=== PATIENT | female | born 1960 ===

== ENCOUNTER → 2023-09-01 18:46 | Outpatient (REF) | payer BC, SELFPAY | LOC: WDC 18:46 | PROVIDERS: ATTENDING PHYSICIAN Family Medicine | DX: Z12.31 Encounter for screening mammogram for malignant neoplasm of breast (principal) | CPT/HCPCS: 77063; 77067 ==

== ENCOUNTER 2023-09-26 21:37 | Emergency (ER) | payer BC, SELFPAY ==
[2023-09-26 21:42] VITALS: BP 194/96
[2023-09-26 22:09] LABS: % Basophils 0.4 % (0-2); % Eosinophils 0.7 % (0-6); % Immature Granulocytes 0.3 % (0-0.5); % Lymphocytes 16.1 % (20.5-51.1); % Neutrophils 77.5 % (42.2-75.2); Absolute Eosinophils 0.1 10^3/uL (0-0.7); Absolute Lymphocytes 1.7 10^3/uL (1.2-3.4); Absolute Monocytes 0.5 10^3/uL (0.1-0.6); Hematocrit 42.7 % (37.0-47.0); Hemoglobin 13.9 g/dL (12.0-16.0); Mean Corp Hgb Conc. 32.6 g/dL (33.0-37.0); Mean Corpuscular Hgb 29.4 pg (27.0-31.0); Mean Corpuscular Volume 90.5 fL (81.0-99.0); Mean Platelet Volume 9.9 fL (7.4-10.4); Nucleated Red Blood Cells % 0 %; Platelet Count 244 10^3/uL (130-400); Red Blood Cell Count 4.72 10^6/uL (4.20-5.40); Red Cell Dist. Width 12.9 % (11.5-14.5); White Blood Cell Count 10.3 10^3/uL (4.8-10.8)
[2023-09-26 22:12] LABS: Urine Albumin Negative (Neg - Trace); Urine Bilirubin Negative (Negative); Urine Character Clear (Clear); Urine Color Yellow; Urine Glucose Negative (Negative); Urine Ketone Trace (Negative); Urine Leukocyte 2+ (Negative); Urine Nitrite Negative (Negative); Urine Occult Blood Negative (Negative); Urine Specific Gravity 1.015 (<1.030); Urine Urobilinogen Negative (Neg - 1+)
[2023-09-26 22:22] LABS: ALT (SGPT) 29 U/L (0-35); AST (SGOT) 25 U/L (14-36); Alkaline Phosphatase 59 U/L (38-126); Blood Urea Nitrogen 12 mg/dl (7-17); Carbon Dioxide 28 mmol/L (22-30); Chloride 101 mmol/L (98-107); Glucose 122 mg/dl (70-99); Potassium 3.7 mmol/L (3.5-5.1); Sodium 136 mmol/L (135-145); Total Bilirubin 0.4 mg/dl (0.2-1.3); Total Protein 7.6 g/dl (6.3-8.2); eGFR > 60.00
[2023-09-26 22:28] LABS: Urine Bacteria Few (Negative); Urine Red Blood Cell 0-2 /HPF (0-2)
--- NOTE | 2023-09-26 22:44 | ED.GENMED ---
History of Present Illness
General
Chief Complaint: Abdominal Pain
Source: patient
Exam Limitations: none
Time Seen by Provider: 09/26/23 22:37
Travel History
Have you had any contact with someone who has COVID-19?: No
Do you have any symptoms of coronavirus? Fever > 100 degrees, chills, cough, shortness of breath, sore throat, loss of taste or smell, muscle aches, or headache?: No
History of Present Illness
History of Present Illness:
This is a 63 year old female that comes in with c/o left lower abd pain. Stat that she has had this Throbbing pain in the left lower abd all day. States that she felt like she could hardly walk. States that when she had her kidney stone she had pain
in the back and into the groin but this is different. States that she was nauseated. Denies any fever, chills, chest pain, SOB, vomiting, diarrhea, headache, dizziness, urinary burning.
Past History
Past History
ED Past Medical History: Other (PNA, renal calculus)
ED Past Surgical History: Cholecystectomy, Tonsilectomy and Other (Left Lumpectomy)
Social History
Tobacco: Non-smoker
Alcohol: None
Personal:
Living: alone
Review of Systems
Review of Systems
All Other Systems: ROS reviewed and negative except as documented in HPI and ROS
Constitutional: Reports no symptoms; Denies fever or chills
EENT: Reports no symptoms
Respiratory: Reports no symptoms; Denies cough or trouble breathing
Cardiac: Reports no symptoms; Denies chest pain
ABD/GI: Reports abdominal pain and nausea; Denies vomiting or diarrhea
Musculoskeletal: Reports no symptoms
Skin: Reports no symptoms
Neurological: Denies no symptoms, dizzy or headache
Psychiatric: Reports no symptoms
Phy Exam
General Physical Exam
General Presentation: no apparent distress
General age: appears stated age
General Skin: warm and dry
General Habitus: normal
General Mental: alert
General Hydration: appears well hydrated
ENT Exam
ENT Exam: TM's normal, pharynx normal and neck supple
Eye Exam
Eye Exam: EOMI
Cardiovascular Exam
Cardiovascular Exam: regular rate/rhythm, no edema, no murmur and normal peripheral pulses
Pulmonary Exam
Pulmonary Exam: lungs clear, no respiratory distress, no rales, chest non tender, no crackles, no rhonchi, no wheezing and no cough
Gastrointestinal Exam
Gastrointestinal Exam: normal bowel sounds, soft, no organomegaly, no pulsatile mass, non distended and tender (LLQ tenderness with palpation)
Musculoskeletal Exam
Musculoskeletal Exam: full ROM and no edema
Skin Exam
Skin Exam: normal color, warm/dry, no rash and no petechia
Psychiatric Exam
Psychiatric Exam: normal mood/affect
Course
Orders/Labs/Results
Orders:
Orders
09/26/23 21:59
CMP [Comprehensive Metabolic Panel] Urgent
Complete Blood Count/With Diff Urgent
Urinalysis Urgent
Date Specimen was Collected: 09/26/23
Time Specimen was Collected: 21:44
Urine Microscopic Urgent
Date Specimen was Collected: 09/26/23
Time Specimen was Collected: 21:44
09/26/23 22:44
CT Abd/pelvis W Iv Cont Urgent
Comment:
Reason For Exam: left sided abd pain
0.9% Sodium Chloride 1000 ml [Nss] 1,000 ml IV BOLUS
Abnormal Lab Results
09/26/23
21:59
MCHC 32.6 L g/dL
(33.0-37.0)
Absolute Neuts (auto) 8.0 H 10^3/uL
(1.4-6.5)
Neutrophils % 77.5 H %
(42.2-75.2)
Lymphocytes % 16.1 L %
(20.5-51.1)
Glucose 122 H mg/dl
(70-99)
Urine Ketones Trace A
(Negative)
Ur Leukocyte Esterase 2+ A
(Negative)
Urine WBC 6-10 A /HPF
(0-5)
Urine Bacteria Few A
(Negative)
09/26/23 21:59
09/26/23 21:59
Glucose nonfasting. Urine questionable for infection (patient has no c/o burning or frequency, would wait to treat).
Vital Signs
Initial and Last Documented VS:
Initial Vital Signs
Temp Pulse Resp BP Pulse Ox
98.1 F 78 24 194/96 100
09/26/23 21:42 09/26/23 21:42 09/26/23 21:42 09/26/23 21:42 09/26/23 21:42
Last Documented Vital Signs
Temp Pulse Resp BP Pulse Ox
98.1 F 84 19 150/84 97
09/26/23 21:42 09/26/23 23:02 09/26/23 23:02 09/26/23 23:02 09/26/23 23:02
MDM/Problems Addressed
Differential Diagnosis Includes:
Diverticulitis, Colitis, Enteritis
MDM/Problems Addressed:
This is a 63 year old female that comes in with c/o left lower abd pain that she has had all day.
Will get labs, urine and CT scan. Will give IV fluids.
Back into see patient. Reviewed labs and CT findings. Patient to follow up with the family doctor. At this time can use Tylenol or Ibuprofen for pain. Return with increased or changing pain.
Chronic conditions affecting care:
NA
Acute Exacerbation and/or Progression of Chronic Illness:
NA
*Radiology
Radiology exam reviewed: radiology read reviewed (CT night hawk- No evidence of obstructing ureteral calculus. Colonic diverticulosis without evidence of diverticulitis. Noninflamed appendix. 1cm mildly hypodense lesion in the right hepatic lobe is
indeterminate. MRI is recommended for further characterization. Partially imaged right lower lobe) and all reviewed NAD by ED Provider (CT cont- pulmonary nodule measurng at least 5mm, for hich dedicated CT chest is recommended for further
assessment. Additional findings: Pose cholecystectomy. DJD)
*Pulse Oximetry
Patient hypoxic: no
*EKG
Interpreted by ED Provider?: NA
Rate: EKG- N/A
*Global Climate Change Researcher Interpretation
Rate: Global Climate Change Researcher- N/A
*Critical Care Note
Total Time (30-74mins, 75-104mins- exclusive of procedures): Not Applicable
ED Attending Note
-
Portions of this chart may have been created with voice recognition software.� Occasional wrong word or��sound alike� substitutions may have occurred due to the inherent limitations of voice recognition software.
Discharge Plan
Departure
Patient Disposition: Home (Routine Discharge)
Date of Disposition: 09/27/23
Time of Disposition: 00:28
Patient with high blood pressure during this ER visit?: Yes
Condition: Good
Covid-19: Not Applicable
Discharge Problem:
Left lower quadrant abdominal pain
Instructions: Abdominal Pain, BLOOD PRESSURE
Prescriptions:
No Action
multivitamin 1 EACH tablet
1 ea PO DAILY
zinc 50 MG tablet
50 mg PO Daily
biotin-keratin [Biotin Plus Keratin] 1 EACH tablet
1,000 mcg PO DAILY
finasteride 5 MG tablet
5 mg PO DAILY
Referrals:
Rosa Bullock, DO [Family Provider] - Follow up in 2-3 days
Activity Restrictions/Additional Instructions:
As discussed, our blood work is normal. Your CT is negative for any Diverticulitis or renal calculus. There is a 1cm right hepatic lesion noted that will need further evaluation with MRI that can be ordered by your family doctor. You also had a
nodule noted on the right lower lobe of the lung. This will also need further evaluation with a CT of the chest that can be ordered by your family doctor. You may use Tylenol or Ibuprofen for the left lower abd pain. Increase your water intake to
8-8oz glasses daily. IF YOU HAVE ANY OTHER CONCERNS PLEASE RETURN TO THE EMERGENCY ROOM.
Interventions
Interventions:
*Risk Screen - Suicide Last Done: 09/26/23 21:42
*General Assessment Last Done: 09/26/23 23:02
*Neglect/Abuse Screening Last Done: 09/26/23 21:42
ED- Fall Risk Assessment Last Done: 09/26/23 23:02
*ED COVID-19 Vaccine History Last Done: 09/26/23 23:02
[place]-Xaewmn-Culxgsjkal Assessment Last Done: 09/26/23 23:02
ED-Female Genitourinary Assessment Last Done: 09/26/23 23:02
Discharge Date and Time
Print Language: NEPALI
[2023-09-26 22:45] VITALS: BMI 34.4
[2023-09-26] MEDS: NSS 1000 IV (22:59)
[2023-09-26 23:02] VITALS: BP 150/84
[2023-09-27 00:42] VITALS: BP 164/93
== END 2023-09-27 00:49 | disposition home or self-care (01) ==
LOC: EMR 21:37
PROVIDERS: Emergency Medicine; EMERGENCY PHYSICIAN Emergency Medicine; FAMILY PHYSICIAN Family Medicine
DX: R10.32 Left lower quadrant pain (principal); R11.0 Nausea; R03.0 Elevated blood-pressure reading, without diagnosis of hypertension; Z87.442 Personal history of urinary calculi
CPT/HCPCS: 99285; 74177; 80053; 81003; 81015; 85025; 87086; Q9967

== ENCOUNTER → 2023-10-05 11:58 | Outpatient (REF) | payer BC, SELFPAY | LOC: MRI 3T 11:58 | PROVIDERS: ATTENDING PHYSICIAN Nurse Practitioner Family; FAMILY PHYSICIAN Family Medicine | DX: R16.0 Hepatomegaly, not elsewhere classified (principal) | CPT/HCPCS: 74183 ==

== ENCOUNTER → 2024-09-08 10:28 | Outpatient (REF) | payer BC, SELFPAY | LOC: WDC 10:28 | PROVIDERS: ATTENDING PHYSICIAN Family Medicine | DX: Z12.31 Encounter for screening mammogram for malignant neoplasm of breast (principal) | CPT/HCPCS: 77063; 77067 ==

== ENCOUNTER 2025-04-11 06:24 | Day surgery (SDC) | payer BC, SELFPAY | END 2025-04-11 13:17 | disposition home or self-care (01) | LOC: GI 06:24 | PROVIDERS: ATTENDING PHYSICIAN Internal Medicine Gastroenterology; FAMILY PHYSICIAN Family Medicine | DX: Z12.11 Encounter for screening for malignant neoplasm of colon (principal); K64.8 Other hemorrhoids; K57.30 Diverticulosis of large intestine without perforation or abscess without bleeding; Z86.0100 Personal history of colon polyps, unspecified | CPT/HCPCS: G0105 ==